=== PATIENT | male | born 2000 | race Hispanic/Latino ===

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

== ENCOUNTER 2021-06-23 12:51 | Emergency (ER) | payer MEDICAID ==
[~2021-06-23] VITALS: Ht 170.2 cm; Wt 113.4 kg
[2021-06-23 13:20] VITALS: BP 145/76
[2021-06-23] MEDS ORDERED: KETOROLAC 60 MG VIAL (30MG/ML) IM ONE (13:30)
[2021-06-23] MEDS ORDERED: IBUP-1552 PO (13:34)
== END 2021-06-23 14:07 | disposition home or self-care (01) ==
LOC: EDH 12:51
DX: S83.91XA Sprain of unspecified site of right knee, initial encounter (principal); Z79.1 Long term (current) use of non-steroidal anti-inflammatories (NSAID); E66.9 Obesity, unspecified; Z68.39 Body mass index [BMI] 39.0-39.9, adult; X58.XXXA Exposure to other specified factors, initial encounter; Y93.89 Activity, other specified; Y92.89 Other specified places as the place of occurrence of the external cause; Y99.8 Other external cause status
CPT/HCPCS: 29505; 73562; 96372; 99283; J1885

== ENCOUNTER 2023-01-08 10:03 | Emergency (ER) | payer MEDICAID ==
[~2023-01-08] VITALS: Ht 167.6 cm; Wt 142.9 kg
[~2023-01-08 10:03] MED LIST: IBUP-1552 PO
[2023-01-08] MEDS ORDERED: MOXIOS OD (10:46)
[2023-01-08 11:02] VITALS: BP 125/78
== END 2023-01-08 11:01 | disposition home or self-care (01) ==
LOC: EDH 10:03
DX: H10.9 Unspecified conjunctivitis (principal); Z98.890 Other specified postprocedural states